=== PATIENT | female | born 1965 | race Caucasian/White ===

== ENCOUNTER → 2016-06-30 | Outpatient (CLI) | payer MEDICAID, BC ==
[2016-06-30 08:03] LABS: ALT 25 U/L (9-52); AST 42 U/L (14-36); Alkaline Phosphatase 38 U/L (38-126); Anion Gap 7 mmol/L; Blood Urea Nitrogen 29 mg/dL (7-17); Calcium 9.2 mg/dL (8.4-10.2); Carbon Dioxide 28 mmol/L (22-30); Chloride 104 mmol/L (98-107); Cholesterol 213 mg/dL (<200); Glucose 82 mg/dL (74-99); HDL Cholesterol 83 mg/dL (40-60); Non-African American GFR(MDRD) >60 (>60 ml/min/1.73 sqM); Potassium 4.7 mmol/L (3.5-5.1); Sodium 139 mmol/L (137-145); Total Bilirubin 0.5 mg/dL (0.2-1.3); Total Protein 7.5 g/dL (6.3-8.2); Triglycerides 55 mg/dL (<150)
== END | disposition home or self-care (01) ==
LOC: LABWHC1 07:36
PROVIDERS: ATTEND Physician Assistant
DX: Z00.01 Encounter for general adult medical examination with abnormal findings (principal); Z13.220 Encounter for screening for lipoid disorders
CPT/HCPCS: 36415; 80053; 80061

== ENCOUNTER → 2016-07-28 | Outpatient (CLI) | payer MEDICAID, BC | END | disposition home or self-care (01) | LOC: LABWHC1 08:31 | PROVIDERS: ATTEND Family Medicine | DX: R94.5 Abnormal results of liver function studies (principal) | CPT/HCPCS: 36415; 84460 ==

== ENCOUNTER → 2017-06-08 | Outpatient (CLI) | payer MEDICAID, BC ==
[2017-06-08 10:40] LABS: HCT 41.1 % (34.0-46.0); HGB 13.7 gm/dL (11.4-16.0); MCH 32.2 pg (25.0-35.0); MCHC 33.4 g/dL (31.0-37.0); MCV 96.7 fL (80.0-100.0); Mean Platelet Volume 6.8; Platelet Count 219 k/uL (150-450); RBC 4.25 m/uL (3.80-5.40); RDW 12.3 % (11.5-15.5); WBC 5.3 k/uL (3.8-10.6)
[2017-06-08 10:50] LABS: ALT 25 U/L (9-52); AST 36 U/L (14-36); Albumin 4.4 g/dL (3.5-5.0); Alkaline Phosphatase 45 U/L (38-126); Anion Gap 11 mmol/L; Blood Urea Nitrogen 20 mg/dL (7-17); Calcium 9.5 mg/dL (8.4-10.2); Carbon Dioxide 27 mmol/L (22-30); Chloride 102 mmol/L (98-107); Cholesterol 224 mg/dL (<200); Glucose 83 mg/dL (74-99); HDL Cholesterol 82 mg/dL (40-60); LDL Cholesterol,Calculated 130 mg/dL (0-99); Potassium 4.3 mmol/L (3.5-5.1); Sodium 140 mmol/L (137-145); Total Bilirubin 0.6 mg/dL (0.2-1.3); Triglycerides 59 mg/dL (<150)
== END | disposition home or self-care (01) ==
LOC: LABWHC1 09:41
PROVIDERS: ATTEND Obstetrics & Gynecology
DX: R63.5 Abnormal weight gain (principal); R53.83 Other fatigue; Z78.0 Asymptomatic menopausal state
CPT/HCPCS: 36415; 80053; 80061; 82670; 83001; 84403; 85027

== ENCOUNTER → 2017-06-18 | Outpatient (CLI) | payer MEDICAID, BC ==
--- NOTE | 2017-06-18 15:01 | XR ---
EXAMINATION TYPE: XR finger RT DATE OF EXAM: 06/18/2017 COMPARISON: 02/26/2013 HISTORY: Right middle finger distal phalanx pain. TECHNIQUE: Frontal and lateral views of the right middle phalanx were obtained. FINDINGS: There is no evidence of acute fracture or dislocation of the middle finger. No radiopaque f oreign body or subcutaneous emphysema. Mild distal soft tissue swelling is noted. No suspicious osseo us lesion, cortical erosion or periosteal reaction. IMPRESSION: Mild soft tissue swelling around the distal phalanx of the third digit with no evidence o f acute fracture or dislocation.
== END | disposition home or self-care (01) ==
LOC: RADXRMAIN 14:38
PROVIDERS: ATTEND Physician Assistant
DX: M79.89 Other specified soft tissue disorders (principal)

== ENCOUNTER → 2017-11-02 | Outpatient (CLI) | payer MEDICAID, BC | END | disposition home or self-care (01) | LOC: LABWHC1 08:19 | PROVIDERS: ATTEND Obstetrics & Gynecology | DX: Z78.0 Asymptomatic menopausal state (principal); Z79.890 Hormone replacement therapy | CPT/HCPCS: 36415; 82670; 83001; 84403 ==

== ENCOUNTER → 2018-01-02 | Outpatient (CLI) | payer MEDICAID, BC ==
--- NOTE | 2018-01-03 13:37 | MM ---
Reason for exam: screening (asymptomatic). Last mammogram was performed 3 years and 8 months ago. History: Family history of breast cancer in mother at age 71. Benign left mammotome panel of the left breast, November 13, 2008. Cancelled Left Mammotome of the left breast, October 30, 2008. Benign excisional biopsy of the left breast, November 11, 2007. Took hormonal contraceptives for 4 years beginning at age 27. Took progesterone for 2 months. MG 3D Screening Mammo W/Cad Bilateral CC and MLO view(s) were taken. Prior study comparison: May 05, 2014, bilateral MG screening mammo w CAD. April 29, 2013, bilateral digital screening mammo w/CAD. There are scattered fibroglandular densities. No discrete abnormality. No significant new finding since most recent study. ASSESSMENT: Negative, BI-RAD 1 RECOMMENDATION: Routine screening mammogram of both breasts in 1 year.
== END ==
LOC: RADMAMWWP 12:12
PROVIDERS: ATTEND Obstetrics & Gynecology
DX: Z12.31 Encounter for screening mammogram for malignant neoplasm of breast (principal); Z80.3 Family history of malignant neoplasm of breast
CPT/HCPCS: 77063; 77067

== ENCOUNTER → 2018-06-26 | Outpatient (CLI) | payer BC | END | disposition home or self-care (01) | LOC: LABWHC1 07:11 | PROVIDERS: ATTEND Obstetrics & Gynecology | DX: N95.1 Menopausal and female climacteric states (principal); R53.83 Other fatigue; R61 Generalized hyperhidrosis | CPT/HCPCS: 36415; 82670; 83001; 84403 ==

== ENCOUNTER → 2019-02-14 | Outpatient (CLI) | payer BC ==
--- NOTE | 2019-02-14 13:10 | MM ---
Reason for exam: screening (asymptomatic). Last mammogram was performed 1 year and 1 month ago. History: Family history of breast cancer in mother at age 71. Benign left mammotome panel of the left breast, November 13, 2008. Cancelled Left Mammotome of the left breast, October 30, 2008. Benign excisional biopsy of the left breast, November 11, 2007. Took hormonal contraceptives for 4 years beginning at age 27. Took progesterone for 2 months. Physical Findings: A clinical breast exam by your physician is recommended on an annual basis and results should be correlated with mammographic findings. MG 3D Screening Mammo W/Cad Bilateral CC and MLO view(s) were taken. Prior study comparison: January 02, 2018, bilateral MG 3d screening mammo w/cad. May 05, 2014, bilateral MG screening mammo w CAD. There are scattered fibroglandular densities. Previous mammotome biopsy in the left breast. There is no discrete abnormality. ASSESSMENT: Benign, BI-RAD 2 RECOMMENDATION: Routine screening mammogram of both breasts in 1 year.
== END | disposition home or self-care (01) ==
LOC: RADMAMWWP 09:43
PROVIDERS: ATTEND Obstetrics & Gynecology
DX: Z12.31 Encounter for screening mammogram for malignant neoplasm of breast (principal); Z80.3 Family history of malignant neoplasm of breast
CPT/HCPCS: 77063; 77067

== ENCOUNTER → 2019-07-28 | Outpatient (CLI) | payer BC ==
--- NOTE | 2019-07-28 09:21 | US ---
EXAMINATION TYPE: US abdomen complete DATE OF EXAM: 07/28/2019 COMPARISON: NONE CLINICAL HISTORY: R19.01 R upper quad swelling. EXAM MEASUREMENTS: Liver Length: 11.5 cm Gallbladder Wall: 0.1 cm CBD: 0.4 cm Spleen: 10.0 cm Right Kidney: 11.4 x 4.0 x 5.7 cm Left Kidney: 10.3 x 5.4 x 4.5 cm Severe overlying bowel gas, technically difficult somewhat limited study. Pancreas: Obscured by bowel gas Liver: cyst noted measuring 1.6 x 1.6 x 1.3cm Gallbladder: portions visualized wnl, partially obscured by overlying bowel gas Evidence for sonographic Horta's sign: no CBD: wnl Spleen: Partially obscured by overlying bowel gas, portions Right Kidney: portions visualized wnl, partially obscured by overlying bowel gas Left Kidney: portions visualized wnl, partially obscured by overlying bowel gas Upper IVC: wnl Abd Aorta: Proximal obscured by overlying bowel gas, otherwise wnl IMPRESSION: Somewhat limited exam given overlying bowel gas. 1. Benign-appearing 1.6 cm hepatic cyst. 2. No sonographic evidence of cholelithiasis nor acute cholecystitis. 3. Obscuration of the pancreas and partial visualization of the spleen, kidneys and proximal aorta.
== END | disposition home or self-care (01) ==
LOC: RADUSWWP 08:25
PROVIDERS: ATTEND Family Medicine
DX: K76.89 Other specified diseases of liver (principal); R93.5 Abnormal findings on diagnostic imaging of other abdominal regions, including retroperitoneum
CPT/HCPCS: 76700

== ENCOUNTER → 2019-08-20 | Outpatient (CLI) | payer BC ==
--- NOTE | 2019-08-20 09:36 | NM ---
EXAMINATION TYPE: NM hepatobiliary w CCK DATE OF EXAM: 08/20/2019 COMPARISON: NONE HISTORY: Pain TECHNIQUE: After the intravenous administration of 5.1 mCi Tc 99m Mebrofenin hepatobiliary scintigrap hy is performed. Immediate images post injection. FINDINGS: There is satisfactory initial accumulation of tracer by the liver. The gallbladder is visualized wit hin 14 minutes. The small bowel activity is noted within 18 minutes. At one hour CCK was administer ed, patient was injected with 1.5 mcg of Kinevac, and gallbladder ejection fraction is calculated at 32%. IMPRESSION: Diminished gallbladder ejection fraction which may reflect chronic cholecystitis and/or b iliary dyskinesia.
== END | disposition home or self-care (01) ==
LOC: RADNMMAIN 07:03
PROVIDERS: ATTEND Family Medicine
DX: R93.2 Abnormal findings on diagnostic imaging of liver and biliary tract (principal); R94.5 Abnormal results of liver function studies
CPT/HCPCS: 78227; A9537; J2805

== ENCOUNTER → 2019-09-04 | Outpatient (CLI) | payer BC ==
--- NOTE | 2019-09-04 15:18 | CT ---
EXAMINATION TYPE: CT abdomen pelvis w con DATE OF EXAM: 09/04/2019 COMPARISON: NONE HISTORY: 54-year-old female R14.0 Abd distention, R10.31 RLQ abd pain. TECHNIQUE: Contiguous axial scanning of the abdomen and pelvis following administration of 100 ml Iso spring 300 IV contrast. Delayed images through the kidneys and coronal/sagittal reconstructions perform ed. CT DLP: 647.50 mGycm Automated exposure control for dose reduction was used. FINDINGS: Heart is normal size without pericardial effusion. Lung bases clear without pleural effusion. Approximately 3 hepatic hypodensities measuring up to 1.5 cm, most likely cysts. No biliary ductal di latation. Portal venous system is patent. Gallbladder, adrenal glands, kidneys, spleen, pancreas appear within normal limits. No dilated small bowel, free fluid, free air. No mesenteric or retroperitoneal lymphadenopathy. Redun dant transverse colon. Mildly redundant sigmoid colon. There is large stool burden. No mesenteric or retroperitoneal lymphadenopathy seen. Bladder appears distended. Uterus anteverted but displaced posteriorly due to the full bladder. Possi ble bladder wall diverticulum at the right ureteric and insertion measuring 2.2 x 1.6 cm. Multiple pelvic phleboliths. No pelvic lymphadenopathy seen. Bones: Mild degenerative changes at the hips. Mild degenerative disc disease L-1-L2. IMPRESSION: 1. LARGE STOOL BURDEN. CORRELATE FOR CHRONIC CONSTIPATION. THERE IS REDUNDANCY OF THE TRANSVERSE COLO N AND LESSER DEGREE OF REDUNDANCY OF THE SIGMOID COLON WELL. CONSIDER CLINICAL INTERVENTION TO PRO MOTE REGULAR BOWEL MOVEMENTS. 2. POSSIBLE 2.2 X 1.6 CM DIVERTICULUM RIGHT POSTERIOR BLADDER WALL NEAR THE RIGHT URETERAL INSERTION.
== END | disposition home or self-care (01) ==
LOC: RADCTMAIN 12:47
PROVIDERS: ATTEND Surgery
DX: K59.00 Constipation, unspecified (principal)
CPT/HCPCS: 74177; Q9967

== ENCOUNTER → 2020-04-20 | Outpatient (CLI) | payer BC ==
--- NOTE | 2020-04-22 11:37 | MM ---
Reason for exam: screening (asymptomatic). Last mammogram was performed 1 year and 2 months ago. History: Family history of breast cancer in mother at age 71. Benign left mammotome panel of the left breast, November 13, 2008. Cancelled Left Mammotome of the left breast, October 30, 2008. Benign excisional biopsy of the left breast, November 11, 2007. Took hormonal contraceptives for 4 years beginning at age 27. Took progesterone beginning at age 54. Physical Findings: A clinical breast exam by your physician is recommended on an annual basis and results should be correlated with mammographic findings. MG 3D Screening Mammo W/Cad Bilateral CC and MLO view(s) were taken. Prior study comparison: February 14, 2019, bilateral MG 3d screening mammo w/cad. January 02, 2018, bilateral MG 3d screening mammo w/cad. Previous mammotome biopsy in the left breast. No significant changes when compared with prior studies. ASSESSMENT: Benign, BI-RAD 2 RECOMMENDATION: Routine screening mammogram of both breasts in 1 year.
== END ==
LOC: RADMAMWWP 08:29
PROVIDERS: ATTEND Family Medicine
DX: Z12.31 Encounter for screening mammogram for malignant neoplasm of breast (principal); Z80.3 Family history of malignant neoplasm of breast
CPT/HCPCS: 77063; 77067; 87070

== ENCOUNTER → 2020-06-04 | Outpatient (CLI) | payer BC ==
--- NOTE | 2020-06-04 14:54 | US ---
EXAMINATION TYPE: US abdomen limited DATE OF EXAM: 06/04/2020 COMPARISON: None CLINICAL HISTORY: 55-year-old female K76.89 Other specified diseases of liver. TECHNIQUE: Multiple sonographic images of the right upper quadrant are obtained. FINDINGS: EXAM MEASUREMENTS: Liver Length: 12.9 cm Gallbladder Wall: 0.2 cm CBD: 0.5 cm Right Kidney: 10.9 x 4.8 x 5.9 cm Pancreas: not visualized due to midline bowel gas Liver: right lobe cyst measures 1.9 x 1.5 x 1.3 cm Gallbladder: No stones seen Evidence for sonographic Horta's sign: No CBD: wnl Right Kidney: No hydronephrosis. IMPRESSION: Suboptimal visualization of the pancreas. Otherwise, unremarkable sonographic examination of the abdo men.
== END | disposition home or self-care (01) ==
LOC: RADUSWWP 08:36
PROVIDERS: ATTEND Family Medicine
DX: K76.89 Other specified diseases of liver (principal)
CPT/HCPCS: 76705

== ENCOUNTER → 2021-05-05 | Outpatient (CLI) | payer BC ==
--- NOTE | 2021-05-10 12:42 | MM ---
Reason for exam: screening (asymptomatic). Last mammogram was performed 1 year ago. History: Patient is postmenopausal. Family history of breast cancer in mother at age 71. Benign left mammotome panel of the left breast, November 13, 2008. Cancelled Left Mammotome of the left breast, October 30, 2008. Benign excisional biopsy of the left breast, November 11, 2007. Took hormonal contraceptives for 4 years beginning at age 27. Taking estrogen for 2 years beginning at age 54. Taking progesterone for 2 years beginning at age 54. Physical Findings: A clinical breast exam by your physician is recommended on an annual basis and results should be correlated with mammographic findings. MG 3D Screening Mammo W/Cad Bilateral CC and MLO view(s) were taken. Prior study comparison: April 20, 2020, bilateral MG 3d screening mammo w/cad. February 14, 2019, bilateral MG 3d screening mammo w/cad. There are scattered fibroglandular densities. Previous mammotome biopsy in the left breast. There is no discrete abnormality. ASSESSMENT: Benign, BI-RAD 2 RECOMMENDATION: Routine screening mammogram of both breasts in 1 year.
== END | disposition home or self-care (01) ==
LOC: RADMAMWWP 10:10
PROVIDERS: ATTEND Obstetrics & Gynecology
DX: Z12.31 Encounter for screening mammogram for malignant neoplasm of breast (principal); Z80.3 Family history of malignant neoplasm of breast; Z78.0 Asymptomatic menopausal state
CPT/HCPCS: 77063; 77067

== ENCOUNTER → 2021-12-28 | Outpatient (CLI) | payer BC ==
--- NOTE | 2021-12-29 08:03 | CT ---
EXAMINATION TYPE: CT chest w con CT DLP: 599 mGycm, Automated exposure control for dose reduction was used. DATE OF EXAM: 12/28/2021 4:47 PM COMPARISON: Chest radiograph from 12/21/2021 CLINICAL INDICATION:Female, 56 years old with history of D86.9 SARCOIDOSIS, UNSPECIFIED, Sarcoidosis, unspecified TECHNIQUE: Multiple axial images were obtained through the chest. Sagittal and coronal reformats were created for review. Contrast used:100 ml mL of Isovue 300 with IV Contrast Oral contrast used: none. FINDINGS: LUNGS/ PLEURA: No evidence of focal consolidation, pneumothorax or pleural effusion. No suspicious pu lmonary nodules are identified. AIRWAY: Patent and unremarkable. HEART: Size within normal limits. MEDIASTINUM: No gross evidence of adenopathy. VASCULATURE: No aortic aneurysm. MUSCULOSKELETAL: No acute osseous abnormalities SOFT TISSUES/LYMPH NODES: Unremarkable. LOWER NECK: No significant findings. UPPER ABDOMEN: Diffuse low-attenuation to the liver parenchyma with a few scattered cysts. Focal fatt y infiltration near the falciform ligament is present. IMPRESSION: No evidence of lymphadenopathy or pulmonary findings of sarcoidosis.
== END | disposition home or self-care (01) ==
LOC: RADCTMAIN 13:05
PROVIDERS: ATTEND Internal Medicine Critical Care Medicine
DX: D86.9 Sarcoidosis, unspecified (principal)
CPT/HCPCS: 71260; Q9967

== ENCOUNTER → 2022-05-08 | Outpatient (CLI) | payer BC ==
--- NOTE | 2022-05-09 08:51 | MM ---
Reason for Exam: Screening (asymptomatic). Last screening mammogram was performed 12 month(s) ago. Patient History: Menarche at age 12. First Full-Term at age 32. Late child-bearing (after 30). Postmenopausal. Currently using Estrogen, beginning at age 54 for 2 years. Currently using Progesterone, beginning at age 54 for 2 years. Hormonal Contraceptives for 4 years from age 27 until age 31. 11/11/2007, Benign Excisional Biopsy on the left side. 11/13/2008, Benign Core Biopsy on the left side. 10/30/2008, Cancelled Left Mammotome on the left side. Mother had breast cancer, age 71. Risk Values: Melly 5 year model risk: 3.9%. NCI Lifetime model risk: 24.8%. Prior Study Comparison: 02/14/2019 Bilateral Screening Mammogram, [facility]. 04/20/2020 Bilateral Screening Mammogram, [facility]. 05/05/2021 Bilateral Screening Mammogram, [facility]. Tissue Density: There are scattered fibroglandular densities. Findings: Analyzed By CAD. There is no suspicious group of microcalcifications or new suspicious mass in either breast. Previous mammotome biopsy in the left breast. Overall Assessment: Benign, BI-RAD 2 Management: Screening Mammogram of both breasts in 1 year. A clinical breast exam by your physician is recommended on an annual basis and results should be correlated with mammographic findings. Electronically signed and approved by: Rodrick Willett D.O.
== END | disposition home or self-care (01) ==
LOC: RADMAMWWP 08:05
PROVIDERS: ATTEND Obstetrics & Gynecology
DX: Z12.31 Encounter for screening mammogram for malignant neoplasm of breast (principal); Z78.0 Asymptomatic menopausal state; Z80.3 Family history of malignant neoplasm of breast
CPT/HCPCS: 77063; 77067

== ENCOUNTER → 2023-05-17 | Outpatient (CLI) | payer BC ==
--- NOTE | 2023-05-17 12:29 | MM ---
Reason for Exam: Screening (asymptomatic). Last screening mammogram was performed 12 month(s) ago. Patient History: Menarche at age 12. First Full-Term at age 32. Late child-bearing (after 30). Postmenopausal. Currently using Estrogen, beginning at age 54 for 2 years. Currently using Progesterone, beginning at age 54 for 2 years. Hormonal Contraceptives for 4 years from age 27 until age 31. 11/11/2007, Benign Excisional Biopsy on the left side. 11/13/2008, Benign Core Biopsy on the left side. 10/30/2008, Cancelled Left Mammotome on the left side. Mother had breast cancer, age 71. Risk Values: Melly 5 year model risk: 3.2%. NCI Lifetime model risk: 19.7%. Prior Study Comparison: 04/20/2020 Bilateral Screening Mammogram, [facility]. 05/05/2021 Bilateral Screening Mammogram, [facility]. 05/08/2022 Bilateral MG 3D screening mammo w/cad, [facility]. Tissue Density: The breasts are almost entirely fatty. Findings: Analyzed By CAD. The pattern is symmetrical. Pattern appears stable. Core marker is within the left breast. No suspicious groups of microcalcifications, spiculated or lobular masses, architectural distortion or other secondary signs of malignancy are mammographically apparent. Overall Assessment: Negative, BI-RAD 1 Management: Screening Mammogram of both breasts in 1 year. A negative mammogram report should not preclude additional follow up of suspicious palpable abnormalities. Patient should continue monthly self breast exam. A clinical breast exam by your physician is recommended on an annual basis and results should be correlated with mammographic findings. Electronically signed and approved by: Oren Mccarthy D.O. Radiologis
== END | disposition home or self-care (01) ==
LOC: RADMAMWWP 08:32
PROVIDERS: ATTEND Obstetrics & Gynecology
DX: Z12.31 Encounter for screening mammogram for malignant neoplasm of breast (principal); Z80.3 Family history of malignant neoplasm of breast; Z78.0 Asymptomatic menopausal state
CPT/HCPCS: 77063; 77067

== ENCOUNTER → 2024-03-18 | Outpatient (CLI) | payer BC ==
--- NOTE | 2024-03-18 14:15 | US ---
EXAMINATION TYPE: US thyroid st tissue head/neck DATE OF EXAM: 03/18/2024 COMPARISON: NONE CLINICAL INDICATION: Female, 59 years old with history of R22.0 LOCALIZED SWELLING, MASS AND LUMP, HE AD; Pt states difficulty swallowing TECHNIQUE: Grayscale and color Doppler imaging of the thyroid gland. FINDINGS: GLAND SIZE: Right Lobe: 4.9 x 1.4 x 1.4 cm Overall Parenchyma: homogeneous Left Lobe: 4.8 x 1.1 x 1.4 cm Overall Parenchyma: homogeneous Isthmus Thickness: 0.2 cm NODULES RIGHT: # of nodules measured on right: 0 LEFT: # of nodules measured on left: 0 ISTHMUS: # of nodules measured in the isthmus: 0 Bilateral neck scanned, no evidence of lymphadenopathy. Bilateral thyroid appeared wnl. IMPRESSION: Borderline enlarged thyroid gland. Normal homogeneous appearance. No discrete nodules. [facility], Workstation: [place], 03/18/2024 2:13 PM
== END | disposition home or self-care (01) ==
LOC: RADUSWWP 13:21
PROVIDERS: ATTEND Family Medicine
DX: R22.0 Localized swelling, mass and lump, head (principal); R13.10 Dysphagia, unspecified
CPT/HCPCS: 76536

== ENCOUNTER → 2024-05-19 | Outpatient (CLI) | payer BC ==
--- NOTE | 2024-05-19 10:39 | MM ---
Reason for Exam: Screening (asymptomatic). Last screening mammogram was performed 12 month(s) ago. Patient History: Menarche at age 12. First Full-Term at age 32. Late child-bearing (after 30). Postmenopausal. Currently using Estrogen, beginning at age 54 for 2 years. Currently using Progesterone, beginning at age 54 for 2 years. Hormonal Contraceptives for 4 years from age 27 until age 31. 11/11/2007, Benign Excisional Biopsy on the left side. 11/13/2008, Benign Core Biopsy on the left side. 10/30/2008, Cancelled Left Mammotome on the left side. Mother had breast cancer, age 71. Risk Values: Melly 5 year model risk: 3.4%. NCI Lifetime model risk: 19.3%. Prior Study Comparison: 05/05/2021 Bilateral Screening Mammogram, [facility]. 05/08/2022 Bilateral MG 3D screening mammo w/cad, [facility]. 05/17/2023 Bilateral MG 3D screening mammo w/cad, [facility]. Tissue Density: The breasts are almost entirely fatty. Findings: Analyzed By CAD. There is no suspicious group of microcalcifications or new suspicious mass in either breast. Overall Assessment: Negative, BI-RAD 1 Management: Screening Mammogram of both breasts in 1 year. . Patient should continue monthly self-breast exams. A clinical breast exam by your physician is recommended on an annual basis. This exam should not preclude additional follow-up of suspicious palpable abnormalities. Note on Melly scores and lifetime risk: 1. A Melly score greater than 3% is considered moderate risk. If this is the case, consider specialist referral to assess eligibility for a risk reducing agent. 2. If overall lifetime risk for the development of breast cancer is 20% or higher, the patient may qualify for future screening with alternating mammogram and breast MRI. [facility], , 05/19/2024 10:32 AM. Electronically signed and approved by: Marvin Hobbs M.D. Radiologis
== END | disposition home or self-care (01) ==
LOC: RADMAMWWP 10:07
PROVIDERS: ATTEND Family Medicine
DX: Z12.31 Encounter for screening mammogram for malignant neoplasm of breast (principal); R92.313 Mammographic fatty tissue density, bilateral breasts; Z78.0 Asymptomatic menopausal state; Z80.3 Family history of malignant neoplasm of breast; Z92.0 Personal history of contraception
CPT/HCPCS: 77063; 77067